=== PATIENT | male | born 1980 | race Hispanic/Latino ===

== ENCOUNTER → 2021-07-29 | Outpatient (CLI) | payer OTHER | END | disposition home or self-care (01) | LOC: RAH 14:17 | PROVIDERS: ATTEND Orthopaedic Surgery | DX: C40.90 Malignant neoplasm of unspecified bones and articular cartilage of unspecified limb (principal); M89.8X8 Other specified disorders of bone, other site | CPT/HCPCS: 71250 ==

== ENCOUNTER → 2022-10-04 | Outpatient (CLI) | payer OTHER | END | disposition home or self-care (01) | LOC: SHCH 13:55 | PROVIDERS: ATTEND Internal Medicine Cardiovascular Disease | DX: I25.5 Ischemic cardiomyopathy (principal) | CPT/HCPCS: 93306 ==